=== PATIENT | female | born 1945 | race Hispanic/Latino ===

== ENCOUNTER 2016-06-13 09:08 | Outpatient (CLI) | payer MEDICARE ==
--- NOTE | 2016-06-13 10:02 | Mammography Report ---
Diagnostic left mammogram. History: Six-month followup for nodular asymmetries. Findings: Comparison is made to the previous study on January 03, 2016. The overall clinical pattern is stable. On the spot compression images in both views, a single ovoid-shaped nodular asymmetry is seen, best identified on the CC spot compression image. The size and configuration are unchanged. No new masses or architectural distortion. Impression: Stable benign nodular asymmetry in the central left breast. BI-RADS code: 2. Recommendation: Routine screening schedule.
== END 2016-06-13 09:09 | disposition home or self-care (01) ==
LOC: SPVWC 09:08
PROVIDERS: ATTEND Obstetrics & Gynecology
DX: N64.89 Other specified disorders of breast (principal)
CPT/HCPCS: G0206-LT

== ENCOUNTER 2017-03-13 08:15 | Outpatient (CLI) | payer MEDICARE ==
--- NOTE | 2017-03-13 16:31 | Mammography Report ---
BILATERAL DIGITAL SCREENING MAMMOGRAM with CAD : 03/13/17 08:15:00 CLINICAL: Routine screening. COMPARISON:12/20/15 and 12/14/14 FINDINGS: The breasts are heterogeneously dense, which may obscure small masses. No mass, architectural distortion or suspicious calcifications. IMPRESSION: No mammographic evidence of malignancy. BI-RADS CATEGORY: 2 -- Benign RECOMMENDATION: Routine mammographic screening in one year. COMMENT: Patient follow-up letters are generated by our [employer] application.
== END 2017-03-13 08:16 | disposition home or self-care (01) ==
LOC: SPVWC 08:15
PROVIDERS: ATTEND Obstetrics & Gynecology
DX: Z12.31 Encounter for screening mammogram for malignant neoplasm of breast (principal)
CPT/HCPCS: 77067